=== PATIENT | female | born 1980 | race Caucasian/White ===

== ENCOUNTER 2025-04-17 20:31 | Outpatient (REF) | payer OTHER, SELFPAY ==
--- OUTSIDE RECORDS SUMMARY | 2025-04-17 15:40 | XMS_ITS | Encounter Summary ---
Author Organization [facility] Address [address] [place] [address] Care Team Providers Care Dimensional Engineer Name Role Phone Unavailable Primary Care Provider Unavailabl e Reason for Visit * Reason Comments Well Women Visit Encounter Details Date Type Department Care Team (Latest Contact Info) Description 04/17/2025 3:40 PM EDT Procedure Visit [facility] [address] [place] [id number] Olvin Herzog DO [address] [place] [address] Well woman exam with routine gynecological exam; Breast cancer screening by mammogram; Lipoma, unspecified site Social History Tobacco Use Types Packs/Day Years Used Date Smoking Tobacco: Never Assessed Comments Unknown Sex and Gender Information Value Date Recorded Sex Assigned at Not on file Legal Sex Female 6:36 PM EDT Gender Identity Not on file Sexual Orientation Not on file documented as of this encounter Progress Notes * Shannon Martínez LPN - 04/17/2025 3:40 PM EDT Reason for Appointment: Patient ID: Alina Aranda is a 44 y.o. female who presents for Well Women Visit Patient presents today for Annual Exam. MEDICATIONS No current outpatient medications ALLERGIES No Known Allergies PROBLEMS Active Ambulatory Problems Diagnosis Date Noted No Active Ambulatory Problems Resolved Ambulatory Problems Diagnosis Date Noted No Resolved Ambulatory Problems No Additional Past Medical History HISTORY PAST MEDICAL HISTORY SOCIAL HISTORY History reviewed. No pertinent past medical history. Social History Tobacco Use Smoking status: Not on file Smokeless tobacco: Not on file Substance Use Topics Alcohol use: Not on file Drug use: Not on file FAMILY HISTORY No family history on file. SURGICAL HISTORY History reviewed. No pertinent surgical history. REVIEW OF SYSTEMS Review of Systems: Review of Systems All other systems reviewed and are negative. OBJECTIVE Objective: Physical Exam Constitutional: Appearance: Normal appearance. She is well-developed. Genitourinary: Vulva normal. Cardiovascular: Rate and Rhythm: Normal rate and regular rhythm. Pulmonary: Effort: Pulmonary effort is normal. Breath sounds: Normal breath sounds. Abdominal: General: Bowel sounds are normal. There is no distension. Palpations: Abdomen is soft. Tenderness: There is no abdominal tenderness. There is no guarding or rebound. Musculoskeletal: General: No swelling. Normal range of motion. Right lower leg: No edema. Left lower leg: No edema. Neurological: Mental Status: She is alert and oriented to person, place, and time. Skin: General: Skin is warm and dry. Psychiatric: Mood and Affect: Mood normal. Behavior: Behavior normal. Vitals and nursing note reviewed. Exam conducted with a screen examiner present. Vitals: There is no height or weight on file to calculate BMI. BP: No LMP recorded. ASSESSMENT & PLAN ICD-10-CM 1. Well woman exam with routine gynecological exam Z01.419 THIN PREP TIS PAP AND HR HPV DNA CANCELED: THIN PREP TIS PAP AND HR HPV DNA 2. Breast cancer screening by mammogram Z12.31 Bilateral screening mammogram Bilateral screening mammogram CANCELED: Bilateral screening mammogram CANCELED: Bilateral screening mammogram 3. Lipoma, unspecified site D17.9 US Soft Tissue Palpable Mass Annual Exam: Patient presents today for an annual exam. Patient states she is doing well and has no complaints. Pap was obtained without difficulty. Left labial superior lipoma with areas ultrasound given to patient. Orders Placed This Encounter Procedures Bilateral screening mammogram US Soft Tissue Palpable Mass Follow Up: Patient is to return in one year for annual unless needed otherwise. Documented by Shannon Martínez LPN on behalf of: Donna Caldwell NP documented in this encounter Plan of Treatment Upcoming Encounters Date Type Department Care Team (Late st Contact Info) Description 04/23/2026 3:30 PM EDT Procedure Visit [facility] [address] [place] [address] [place] [address] Olvin Herzog, DO [address] [facility] [address] [place] [address] Scheduled Orders Name Type Priority Associated Diagnoses Orde r Schedule Bilateral screening mammogram Imaging Routine Breast cancer screening by mammogram Expected: 04/17/2025 (Approximate), Expires: 06/17/2026 THIN PREP TIS PAP AND HR HPV DNA Pathology and Cytology Routine Well woman exam with routine gynecological exam Ordered: 04/17/2025 US Soft Tissue Palpable Mass Imaging Routine Lipoma, unspecified site Expected: 04/17/2025, Expires: 04/17/2026 documented as of this encounter Visit Diagnoses Diagnosis Well woman exam with routine gynecological exam Routine gynecological examination Breast cancer screening by mammogram Lipoma, unspecified site documented in this encounter
--- OUTSIDE RECORDS SUMMARY | 2025-04-17 20:40 | XMS_ITS | Encounter Summary ---
Author Organization [facility] Address [address] [place] [address] Care Team Providers Care Scientific Research Associate Name Role Phone Unavailable Primary Care Provider Unavailabl e Encounter Details Date Type Department Care Team (Late st Contact Info) Description 04/17/2025 Bamboo flowsheet [facility] [address] [place] [address] Olvin Herzog, DO [address], [facility] Social History Tobacco Use Types Packs/Day Years Used Date Smoking Tobacco: Never Assessed Comments Unknown Sex and Gender Information Value Date Recorded Sex Assigned at Not on file Legal Sex Female 6:36 PM EDT Gender Identity Not on file Sexual Orientation Not on file documented as of this encounter Plan of Treatment Upcoming Encounters Date Type Department Care Team (Late st Contact Info) Description 04/23/2026 3:30 PM EDT Procedure Visit [facility] [address] [place] [id number] Olvin Herzog DO [address], [facility] documented as of this encounter Visit Diagnoses Not on filedocumented in this encounter
--- OUTSIDE RECORDS SUMMARY | 2025-04-17 20:40 | XMS_ITS | Clinical Summary ---
Author Organization [facility] Address [id number] [address] [place] [address] Care Team Providers Care Geochemical Laboratory Technician Name Role Phone No Pcp, No Pcp Primary Care Provider Unavailabl e Social History Tobacco Use Types Packs/Day Years Used Date Smoking Tobacco: Never Assessed Childcare Answer Date Recorded Childcare Unknown 01/03/2019 Employment Answer Date Recorded Employment Unknown 01/03/2019 Purpose - Life Answer Date Recorded Purpose and direction in life Unknown Comments Unknown Sex and Gender Information Value Date Recorded Sex Assigned at Not on file Legal Sex Female 12:12 PM EDT Gender Identity Not on file Sexual Orientation Not on file Plan of Treatment Not on file Medical Devices Not on file Care Teams Geochemical Laboratory Technician Relationship Specialty Start Date End Date No Pcp, [place] [address] PCP - General Family Medicine 09/13/17
--- OUTSIDE RECORDS SUMMARY | 2025-04-17 20:40 | XMS_ITS | Clinical Summary ---
Author Organization [facility] Address [address] [place] [address] Care Team Providers Care Operations Section Manager Name Role Phone Unavailable Primary Care Provider Unavailabl e Allergies No known active allergies Medications No known medications Encounters Date Type Department Care Team Description 04/17/2025 3:40 PM EDT Procedure Visit [facility] [address] [place] [address] Olvin Herzog DO Well woman exam with routine gynecological exam; Breast cancer screening by mammogram; Lipoma, unspecified site 04/17/2025 Bamboo flowsheet [facility] [address] [place] [address] Olvin Herzog DO from Last 3 Months Social History Tobacco Use Types Packs/Day Years Used Date Smoking Tobacco: Never Assessed Comments Unknown Sex and Gender Information Value Date Recorded Sex Assigned at Not on file Legal Sex Female 6:36 PM EDT Gender Identity Not on file Sexual Orientation Not on file Plan of Treatment Upcoming Encounters Date Type Department Care Team (Late st Contact Info) Description 04/23/2026 3:30 PM EDT Procedure Visit [facility] [address] [place] [address] Olvin Herzog DO [address], [place] [address] Health Maintenance Due Date Last Done Comments HPV/Cotest 2012 Mammogram 2022 Cervical Cancer Screening 12/19/2023 Pap Smear 12/19/2023 12/18/2020 Influenza Vaccine (#1) 2025 Procedures Procedure Name Priority Date/Time Associated Diagnosis Comments PAP SMEAR Routine 12/18/2020 12:00 AM EDT from Last 3 Months or Most Recently Relevant to Health Maintenance Results * Pap Smear (12/18/2020 12:00 AM EDT) Swab Cervical swab / Unknown us Olvin Herzog DO LAB CYTOLOGY ORDERABLES Final Re sult EXTERNAL LAB from Last 3 Months or Most Recently Relevant to Health Maintenance Insurance [facility]
[2025-04-25 15:09] LABS: Age Gdln ACOG Testing Note (.); IGP, Aptima HPV, rfx 16/18,45 Note (.)
== END 2025-04-17 20:32 | disposition home or self-care (01) ==
LOC: LAB 20:31
PROVIDERS: PCP Family Medicine; Visit Provider Nurse Practitioner Family
DX: Z01.419 Encounter for gynecological examination (general) (routine) without abnormal findings (principal)
CPT/HCPCS: 87624; 88175